=== PATIENT | female | born 1970 | race Caucasian/White ===

== ENCOUNTER 2017-06-02 12:19 | Emergency (ER) | payer SELFPAY ==
--- NOTE | 2017-06-02 12:32 | NUR ---
LEFT WITHOUT BEEING SEEN BY DR CROWE
== END 2017-06-02 12:32 | disposition left against medical advice (07) ==
LOC: MED 12:19
DX: Z53.21 Procedure and treatment not carried out due to patient leaving prior to being seen by health care provider (principal)